=== PATIENT | female | born 1970 | race Caucasian/White ===

== ENCOUNTER → 2016-09-30 | Outpatient (CLI) | payer SELFPAY ==
--- NOTE | 2016-09-30 10:27 | MM ---
Reason for exam: screening (asymptomatic). Baseline mammogram. History: Patient has history of other cancer at age 25. Family history of breast cancer in mother at age 40 and breast cancer in maternal grandmother at age 40. Saline implants in both breasts, 1995. Physical Findings: Nurse did not find any significant physical abnormalities on exam. MG 3D Screen Mammo Imp/Cad Bilateral CC and MLO view(s) were taken. The breast tissue is heterogeneously dense. This may lower the sensitivity of mammography. There is no discrete abnormality. These results were verbally communicated with the patient and result sheet given to the patient on 09/30/16. ASSESSMENT: Benign, BI-RAD 2 RECOMMENDATION: Routine screening mammogram of both breasts in 1 year.
== END | disposition home or self-care (01) ==
LOC: RADMAMWWP 09:21
PROVIDERS: ATTEND Internal Medicine
DX: Z12.31 Encounter for screening mammogram for malignant neoplasm of breast (principal)
CPT/HCPCS: 77063; G0202

== ENCOUNTER 2017-11-26 20:54 | Emergency (ER) | payer OTHER ==
[2017-11-26 21:01] VITALS: BP 143/80; PULSE 72; RESP 20; TEMP 98.3
[2017-11-26] MEDS ORDERED: DIPH,PERTUS(ACELL)TETVAC-LF 0.5 ML VIAL IM ONE (21:18)
--- NOTE | 2017-11-26 21:33 | ED ---
General Adult HPI - General Chief complaint: Wound/Laceration Stated complaint: Finger Laceration Time Seen by Provider: 11/26/17 21:14 Source: patient, family, RN notes reviewed Mode of arrival: ambulatory Limitations: no limitations - History of Present Illness Initial comments: 47-year-old female presents to the emergency department for chief complaint of laceration one hour ago. Patient cut herself between the fourth and fifth digit. Patient was washing the edge of the glass when it cut her. Patient states she can move her fingers without difficulty. Patient denies having surgery on that hand. Patient did not sustain any other injuries. Patient's tetanus is not up-to-date. Patient has no other complaints at this time including shortness of breath, chest pain, abdominal pain, nausea or vomiting, headache, or visual changes. - Related Data Home Medications Medication Instructions Recorded Confirmed No Known Home Medications [No 11/26/17 11/26/17 Known Home Medications] Allergies Allergy/AdvReac Type Severity Reaction Status Date / Time No Known Allergies Allergy Verified 11/26/17 21:01 Review of Systems ROS Statement: Those systems with pertinent positive or pertinent negative responses have been documented in the HPI. ROS Other: All systems not noted in ROS Statement are negative. Past Medical History Past Medical History: No Reported History History of Any Multi-Drug Resistant Organisms: None Reported Past Surgical History: Orthopedic Surgery Past Psychological History: No Psychological Hx Reported Smoking Status: Current every day smoker Past Alcohol Use History: Occasional Past Drug Use History: None Reported General Exam Limitations: no limitations General appearance: alert, in no apparent distress Head exam: Present: atraumatic, normocephalic, normal inspection Eye exam: Present: normal appearance ENT exam: Present: normal exam, mucous membranes moist Neck exam: Present: normal inspection, full ROM. Absent: tenderness, meningismus, lymphadenopathy Respiratory exam: Present: normal lung sounds bilaterally. Absent: respiratory distress, wheezes, rales, rhonchi, stridor Cardiovascular Exam: Present: regular rate, normal rhythm, normal heart sounds. Absent: systolic murmur, diastolic murmur, rubs, gallop, clicks Extremities exam: Present: full ROM (Full range of motion of all digits in the right hand including the fourth and fifth digit.), tenderness (Tenderness to the laceration site in the webspace between the fourth and fifth digit), normal capillary refill (Refill less than 2 seconds and radial pulse 2+ in the right upper extremity.), other (Patient has a 1.5 cm laceration between the fourth and fifth digit of the right hand. No signs of infection at this time such as spreading redness or drainage. No foreign bodies noted.) Course Vital Signs 11/26/17 20:57 Temperature 98.3 F Pulse Rate 72 Respiratory 20 Rate Blood Pressure 143/80 O2 Sat by Pulse 97 Oximetry Procedures - Procedures Initial comment: Body area: Webspace between right fourth and fifth finger Laceration length: 2 cm Foreign bodies: no foreign bodies Tendon involvement: none Nerve involvement: none Vascular damage: no Anesthesia: local infiltration Local anesthetic: 3 mL 1% lidocaine Preparation: Patient was prepped and draped in the usual sterile fashion. Irrigation solution: sterile water, iodine Irrigation method:sterile water jet lavage Skin closure:5-0 Ethilon using sterile technique Number of sutures: 6 Technique: interupted Dressing: antibiotic ointment/ gauze Patient tolerance: Patient tolerated the procedure well with no immediate complications. Medical Decision Making - Medical Decision Making 47-year-old female presents to the emergency department for a chief complaint of laceration between the fourth and fifth digit about one hour ago. The laceration appears about 1.5 cm in length. Patient has full range of motion of both the fourth and fifth digit. Neurovascular intact. No foreign bodies in the wounds. All deep structures intact. X-ray demonstrates no acute fractures or dislocations. No foreign bodies noted. Wound was cleaned with sterile water and iodine. It was sutured with 6 sutures. Patient has full range motion after sutures were applied. Antibiotic ointment was applied. Patient was educated on return precautions including signs of infection. She will follow up with primary care in 1-2 days. She will return in 7-10 days to have sutures removed. Disposition Clinical Impression: Laceration Disposition: HOME SELF-CARE Condition: Good Instructions: Care For Your Stitches (ED), Laceration (ED) Additional Instructions: Please monitor for signs of infection such as spreading redness, streaking redness, drainage, or fever and return if these occur. Otherwise keep the area clean. Follow-up with primary care in 1-2 days. Return to the emergency department if you have any worsening symptoms. Return in 7-10 days to have sutures removed. Is patient prescribed a controlled substance at d/c from ED?: No Referrals: Luba Vega DO [Primary Care Provider] - 1-2 days Time of Disposition: 21:58
--- NOTE | 2017-11-26 21:37 | XR ---
EXAMINATION TYPE: XR hand complete RT DATE OF EXAM: 11/26/2017 COMPARISON: NONE HISTORY: Laceration TECHNIQUE: 3 views FINDINGS: Metacarpals appear intact. I see no fracture nor dislocation. There is laceration deformity between the fourth and fifth fingers. IMPRESSION: Soft tissue deformity. No fracture seen. No foreign body seen.
== END 2017-11-26 22:04 | disposition home or self-care (01) ==
LOC: EC 20:54
DX: S61.411A Laceration without foreign body of right hand, initial encounter (principal); F17.200 Nicotine dependence, unspecified, uncomplicated; Z23 Encounter for immunization; W25.XXXA Contact with sharp glass, initial encounter; Y93.G1 Activity, food preparation and clean up; Y92.009 Unspecified place in unspecified non-institutional (private) residence as the place of occurrence of the external cause
CPT/HCPCS: 12001; 90471; 90715; 99283

== ENCOUNTER 2017-11-26 23:34 | Emergency (ER) | payer OTHER ==
[2017-11-26 23:41] VITALS: BP 137/75; PULSE 81; RESP 20; TEMP 99
--- NOTE | 2017-11-27 00:17 | ED ---
ENT HPI - General Chief complaint: ENT Stated complaint: poss med reaction-revisit Time Seen by Provider: 11/26/17 23:59 Source: patient, family, RN notes reviewed Mode of arrival: ambulatory Limitations: no limitations - History of Present Illness Initial comments: This is a 47-year-old female presents to the emergency department with chief complaint of possible med reaction. Patient states that a few hours ago she was here for a finger laceration. She states that she was given a tetanus booster. Patient states that this evening she felt the right side of her neck "blow up like a balloon." She states that she thinks she is having a reaction to the tetanus vaccination which she received in the right arm. Patient denies any difficulty breathing or sore throat. She does state that she has a history of multiple episodes of strep throat and tonsillitis. She denies any recent illnesses or infections. Denies fevers or chills, chest pain or shortness of breath, cough or sore throat, runny nose or ear pain, abdominal pain, nausea or vomiting. - Related Data Home Medications Medication Instructions Recorded Confirmed No Known Home Medications [No 11/26/17 11/26/17 Known Home Medications] Allergies Allergy/AdvReac Type Severity Reaction Status Date / Time No Known Allergies Allergy Verified 11/26/17 23:41 Review of Systems ROS Statement: Those systems with pertinent positive or pertinent negative responses have been documented in the HPI. ROS Other: All systems not noted in ROS Statement are negative. Past Medical History Past Medical History: No Reported History History of Any Multi-Drug Resistant Organisms: None Reported Past Surgical History: Orthopedic Surgery Past Psychological History: No Psychological Hx Reported Smoking Status: Current every day smoker Past Alcohol Use History: Occasional Past Drug Use History: None Reported General Exam - General Exam Comments Initial Comments: General: Awake and alert, well-developed; in no apparent distress. HEENT: Head atraumatic, normocephalic. Pupils are equal, round and reactive to light. Extraocular movements intact. Oropharynx moist without erythema. Enlargement of the right tonsil. Neck: Supple. Normal ROM. Non-tender right submandibular and tonsillar lymphadenopathy. Cardiovascular: Regular rate and rhythm. No murmurs, rubs or gallops. Chest symmetrical. Respiratory: Lungs clear to auscultation bilaterally. No wheezes, rales or rhonchi. Normal respiratory effort with no use of accessory muscles. Musculoskeletal: Normal ROM, no tenderness bilateral upper and lower extremities. Ambulating normally. Skin: Landing, warm and dry without rashes or lesions. Neurological: Alert and oriented x3. CN II-XII grossly intact. Speech is fluent and answers are appropriate. No focal neuro deficits. Psychiatric: Normal mood and affect. No overt signs of depression or anxiety noted. Limitations: no limitations Course Vital Signs 11/26/17 23:37 Temperature 99 F Pulse Rate 81 Respiratory 20 Rate Blood Pressure 137/75 O2 Sat by Pulse 99 Oximetry Medical Decision Making - Medical Decision Making This is a 47-year-old female presents to the emergency department with chief complaint of possible reaction to tetanus vaccination. Patient states she developed swelling under her right mandible this evening. She was here earlier in the day and received a tetanus booster for a finger laceration that she sustained. On physical examination, patient does have non-tender lymphadenopathy of the right submandibular and tonsillar areas. Right tonsil is enlarged. Rapid strep is negative. Vital signs are stable and patient is in no acute distress. She denies any difficulty breathing, difficulty swallowing or painful swallowing. She will be discharged home at this time. She is in agreement voices understanding. All questions answered. - Lab Data Lab Results 11/27/17 Range/Units 00:17 Group A Strep Rapid Negative (Negative) Disposition Clinical Impression: Lymphadenopathy Disposition: HOME SELF-CARE Condition: Good Instructions: Lymphadenopathy (ED) Additional Instructions: Please follow up with primary care provider within 1-2 days. Return to emergency department if symptoms should worsen or any concerns arise. Is patient prescribed a controlled substance at d/c from ED?: No Referrals: Luba Vega DO [Primary Care Provider] - 1-2 days Time of Disposition: 01:06
== END 2017-11-27 01:22 | disposition home or self-care (01) ==
LOC: EC 23:34
DX: R59.0 Localized enlarged lymph nodes (principal); J35.1 Hypertrophy of tonsils; F17.200 Nicotine dependence, unspecified, uncomplicated
CPT/HCPCS: 87081; 87430; 99283

== ENCOUNTER → 2024-06-27 | Outpatient (CLI) | payer OTHER ==
--- NOTE | 2024-06-27 07:43 | CTL ---
EXAMINATION TYPE: CT Low Dose Lung DATE OF EXAM ORDERED: 06/27/2024 COMPARISON: None CLINICAL INDICATION: Female, 54 years old with history of Z12.2 ENCNTR SCREEN FOR MALIGNANT NEOPLASM OF RESP; PHH, Personal hx nicotine dependence current smoker 1 ppd x 40 years, no concerns noted, Sammi g cancer screening, History of Smoking/tobacco use. TECHNIQUE: Low dose computed tomography scan was performed through the chest at 1 mm thick sections a nd reconstructed images in multiple planes at 1 mm and [address] DLP: 134.[address] CTDI: 3.8 mGy Automated exposure control for dose reduction was used. CT DIAGNOSTIC QUALITY: Satisfactory FINDINGS: Biapical pleural thickening with emphysematous changes. There are apical subpleural 1 to 2 mm pulmona ry micronodules in bilateral upper lobes. There is a 2 mm nodule adjacent to the fissure in the right upper lobe reference axial image 134 series 4. There is a 3 mm pulmonary nodule left upper lobe image 150 series 4. Subsegmental areas of scarring or atelectasis bilateral lungs. No pleural effusion or pneumothorax. Heart size within normal limits with trace of pericardial fluid. No significant coronary artery calci fication. Aorta of normal caliber. Bilateral breast implant surgery. Degenerative changes of the spin e. Assessment for adenopathy limited due to noncontrast technique. No bulky pathologic adenopathy. Small hiatal hernia incidentally noted. IMPRESSION: 1. Mild COPD with scattered areas of scarring or atelectasis. 2. Bilateral pulmonary micronodules have a benign appearance. 2 small to characterize. Recommend 12 m onth follow-up CT scan according to Fleischner Society guidelines. CT LUNG RAD AND CT CHEST RECOMMENDATION: S Modifier (other clinically significant findings): [facility], , 06/27/2024 7:41 AM
--- NOTE | 2024-06-27 08:17 | MM ---
Reason for Exam: Hx of breast augmentation, asymptomatic. Last mammogram was performed 7 year(s) and 9 month(s) ago. Patient History: Menarche at age 15. First Full-Term at age 21. Postmenopausal. Other cancer, age 25. 1995, Bilateral Implants. Maternal grandmother had breast cancer, age 40. Mother had breast cancer, age 40. Risk Values: Idalia 5 year model risk: 1.9%. NCI Lifetime model risk: 14.4%. Prior Study Comparison: 09/30/2016 Bilateral Screening Mammogram, [facility]. Tissue Density: There are scattered areas of fibroglandular density. Findings: Analyzed By CAD. Redemonstrated bilateral retropectoral saline implants. Decreasing breast density compared to prior exam. Redemonstrated low axillary tail lymph node right breast. There is no suspicious group of microcalcifications or new suspicious mass in either breast. Overall Assessment: Benign, BI-RAD 2 Management: Screening Mammogram of both breasts in 1 year. . Patient should continue monthly self-breast exams. A clinical breast exam by your physician is recommended on an annual basis. This exam should not preclude additional follow-up of suspicious palpable abnormalities. Note on Idalia scores and lifetime risk: 1. A Idalia score greater than 3% is considered moderate risk. If this is the case, consider specialist referral to assess eligibility for a risk reducing agent. 2. If overall lifetime risk for the development of breast cancer is 20% or higher, the patient may qualify for future screening with alternating mammogram and breast MRI. [facility], , 06/27/2024 8:14 AM. Electronically signed and approved by: Cain Pedro M.D. Radiologist
== END | disposition home or self-care (01) ==
LOC: RADCTMAIN 06:49
PROVIDERS: ATTEND Family Medicine
DX: Z12.2 Encounter for screening for malignant neoplasm of respiratory organs (principal); F17.210 Nicotine dependence, cigarettes, uncomplicated; Z12.31 Encounter for screening mammogram for malignant neoplasm of breast; Z78.0 Asymptomatic menopausal state; Z80.3 Family history of malignant neoplasm of breast; Z98.82 Breast implant status; R92.323 Mammographic fibroglandular density, bilateral breasts; J44.9 Chronic obstructive pulmonary disease, unspecified
CPT/HCPCS: 71271; 77067